=== PATIENT | male | born 1945 | race Caucasian/White ===

== ENCOUNTER 2023-01-03 20:34 | Emergency (ER) | payer MEDICARE, MEDICAID, SELFPAY ==
--- NOTE | ~2023-01-03 | CT_ITS ---
EXAMINATION: CT HEAD WITHOUT CONTRAST CLINICAL INFORMATION: Left-sided facial droop. Patient on liquids. COMPARISON: CT head from 02/08/2017. TECHNIQUE: Contiguous axial imaging was performed from the skull base to vertex without intravenous administration of contrast. This CT examination was performed using dose optimization techniques as appropriate, variously including the following: *Automated exposure control. *Adjustment of mA and/or kV according to patient size (this includes techniques or standardized protocols for targeted exams where dose is matched to indication/reason for exam; i.e. extremities or head). *Use of iterative reconstruction technique. DLP: 832 mGy-cm FINDINGS: There is no evidence of acute intracranial hemorrhage or edematous territorial infarction. Gomez-white matter differentiation is preserved. Scattered and partially confluent hypoattenuation in the periventricular and deep white matter are consistent with moderate microangiopathy. Proportional prominence of the ventricles and sulcal spaces without evidence of obstructive hydrocephalus. No abnormal mass effect or midline shift. No extra-axial fluid collections. No acute soft tissue or osseous abnormalities. Mild mucosal thickening of the paranasal sinuses. The mastoid air cells and middle ear cavities are clear. CT/CT head for stroke IMPRESSION: 1. No evidence of acute intracranial hemorrhage or edematous territorial infarction. 2. Moderate underlying microangiopathy and generalized cerebral volume loss.
--- NOTE | ~2023-01-03 | CT_ITS ---
EXAMINATION: CT ANGIOGRAM HEAD CT ANGIOGRAM NECK CLINICAL INFORMATION: Left-sided facial droop. Patient on Eliquis. COMPARISON: CT head from 01/03/2023. TECHNIQUE: Initial noncontrast electronic device repairer imaging of the head and neck was performed. Comparison is made with noncontrast head CT from earlier today. Test bolus sequences followed by intravenous administration 75 mL of Omnipaque 350. Helical imaging was performed in the axial plane from the aortic arch to the skull vertex. Delayed postcontrast imaging of the head was also performed. The data was processed at the polysomnographic technologist's workstation for generation of MIP sequences. Angled MIPs and volume rendered reformatted images were also generated at an offline 3D workstation. Stenoses are assessed in accordance with NASCET criteria unless otherwise indicated. This CT examination was performed using dose optimization techniques as appropriate, variously including the following: *Automated exposure control. *Adjustment of mA and/or kV according to patient size (this includes techniques or standardized protocols for targeted exams where dose is matched to indication/reason for exam; i.e. extremities or head). *Use of iterative reconstruction technique. DLP: 1659 mGy-cm FINDINGS: CT Head: There is no evidence of acute intracranial hemorrhage or edematous territorial infarction. Gomez-white matter differentiation is preserved. Scattered and partially confluent hypoattenuation in the periventricular and deep white matter are consistent with moderate microangiopathy. Proportional prominence of the ventricles and sulcal spaces without evidence of obstructive hydrocephalus. No abnormal mass effect or midline shift. No extra-axial fluid collections. No pathologic intra-axial enhancement or regional oligemia. No acute soft tissue or osseous abnormalities. Mild mucosal thickening of the paranasal sinuses. The mastoid air cells and middle ear cavities are clear. CT Neck: The thyroid gland and remaining cervical soft tissues are within normal limits. Straightening of the normal cervical lordosis. Advanced degenerative disc disease from C3-C7. Facet and uncovertebral joint arthropathy leads to osseous encroachment on the neural foramina from C3-C7. CT Upper Chest: The visualized lung apices and upper mediastinum are within normal limits. Neck CTA: Aortic Arch: Normal contour and caliber. Four vessel branching pattern with left vertebral artery arising directly from the arch between the left common carotid and left subclavian arteries. Great Vessel Origins: No significant stenosis of the branch origins. Right Common Carotid Artery: No focal stenosis or occlusion. Cervical Right Internal Carotid Artery: Normal opacification without focal stenosis or occlusion. Left Common Carotid Artery: No focal stenosis or occlusion. Cervical Left Internal Carotid Artery: Normal opacification without focal stenosis or occlusion. Cervical Right Vertebral Artery: Co-dominant. No focal stenosis or occlusion. Cervical Left Vertebral Artery: Co-dominant. No focal stenosis or occlusion. Brain CTA: Intracranial Internal Carotid Arteries: Calcific atherosclerotic disease of the intracranial internal carotid arteries without occlusion or flow-limiting stenosis. Right Anterior Cerebral Artery: Normal A1 segment. Normal opacification of the distal JOSEPH segments. Left Anterior Cerebral Artery: Normal A1 segment. Normal opacification of the distal JOSEPH segments. Anterior Communicating Artery: Normal. Right Middle Cerebral Artery: Normal M1 segment of the MCA without focal stenosis or occlusion. Normal arborization of the distal segments. Left Middle Cerebral Artery: Normal M1 segment of the MCA without focal stenosis or occlusion. Normal arborization of the distal segments. Right Vertebral Artery: Normal V4 segment. Normal opacification of the proximal segments of the posterior inferior cerebellar artery. Left Vertebral Artery: Normal V4 segment. Normal opacification of the proximal segments of the posterior inferior cerebellar artery. Basilar Artery: Normal without focal stenosis or occlusion. Normal appearance of the proximal superior cerebellar arteries. Right Posterior Cerebral Artery: The P1 segment is diminutive. origin of the PRESS TENDER SMOKE SIGNAL with robust opacification of the posterior communicating artery. Normal opacification of the distal PRESS TENDER SMOKE SIGNAL segments. Left Posterior Cerebral Artery: The P1 segment is diminutive. origin of the PRESS TENDER SMOKE SIGNAL with robust opacification of the posterior communicating artery. Normal opacification of the distal PRESS TENDER SMOKE SIGNAL segments. Normal opacification of the superior sagittal, straight, transverse, and sigmoid sinuses. CT/CT angio head neck stroke IMPRESSION: 1. No evidence of acute intracranial hemorrhage or edematous territorial infarction. Moderate underlying microangiopathy and generalized cerebral volume loss. 2. CTA of the head and neck without proximal occlusion or flow-limiting stenosis.
--- NOTE | 2023-01-03 20:38 | ECG_ITS ---
Test Reason : STROKE Blood Pressure : / mmHG Vent. Rate : 071 BPM Atrial Rate : 000 BPM P-R Int : 000 ms QRS Dur : 092 ms QT Int : 390 ms P-R-T Axes : 000 039 -11 degrees QTc Int : 423 ms Atrial fibrillation Nonspecific T wave abnormality Low voltage QRS Abnormal ECG When compared with ECG of 11-MAR-2017 21:27, Nonspecific T wave abnormality now evident in Inferior leads Nonspecific T wave abnormality now evident in Anterior leads Referred By: Wali Rosales Electronically Signed By:DONTE DE LA TORRE MD
[2023-01-03 20:41] LABS: Glucose, Whole Blood 116 mg/dL (60-115)
[2023-01-03 20:47] LABS: MANUAL DIFF FLAG NO
[2023-01-03 20:50] LABS: Basophils Percent Auto 0.4 % (0-2); Eosinophils Absolute Auto 0.2 X10*3/uL (0.0-0.4); Eosinophils Percent Auto 2.7 % (0-4); Hemoglobin 15.4 g/dl (14.0-18.0); Imm Gran Abs Auto 0.02 X10*3/uL (0.00-0.03); Imm Gran Pct Auto 0.2 % (0.0-0.4); Lymphocytes Absolute Auto 1.1 X10*3/uL (1.2-4.9); Lymphocytes Percent Auto 13.6 % (20-40); Mean Corpuscular HGB Conc 32.8 g/dl (31.0-36.0); Mean Corpuscular Hemoglobin 31.6 pg (27.0-33.0); Mean Corpuscular Volume 96.5 fL (80.0-98.0); Mean Platelet Volume 9.9 fL (9.4-12.4); Monocytes Absolute Auto 0.8 X10*3/uL (0.1-1.2); Monocytes Percent Auto 9.9 % (2-11); Neutrophils Absolute Auto 5.9 x10*3/uL (2.0-8.3); Neutrophils Percent Auto 73.2 % (45-73); Platelet Count 229 X10*3/uL (160-400); Red Blood Count 4.87 X10*6/uL (4.60-5.80); Red Cell Distribution Width 13.2 % (11.0-16.0); White Blood Count 8.1 X10*3/uL (4.8-10.8)
[2023-01-03 20:52] VITALS: BP 116/72; BP 124/76; PULSE 68; PULSE 72; RESP 16; O2SAT 98; BMI 36.1
[2023-01-03 20:57] VITALS: PULSE 72
[2023-01-03 21:00] LABS: INTERNATIONAL NORM RATIO 1.1 (0.9-1.1); Prothrombin Time 13.8 SEC (11.1-13.3)
[2023-01-03 21:01] VITALS: TEMP 36.4
--- NOTE | 2023-01-03 21:01 | PC.NURSE ---
2037 pt arrival via ems with stroke alert; Dr. Rosales to bedside. iv established by this RN; labs drawn. poc done by tech as documented. pt/inr not done per Dr. rosales request. [address] scan. pt return to room; changed into hospital gown. placed on heart monitor afib 60-72 bpm. ekg obtained. vss as documented. sats remain 96% on RA; respirations even and unlabored. 2100 pt axox4; speaking full clear sentences. strength equal ble and bue. +1 pitting edema noted ble. +pulses. pt able to follow commands. awaiting ct scan results. call meier within reach.
[2023-01-03 21:02] LABS: Partial Thromboplastin Time 44.2 SEC (26.0-36.4)
[2023-01-03 21:03] LABS: Stroke Lab Use COMPLETE
--- NOTE | 2023-01-03 21:04 | ED_ITS ---
HPI - Neuro Symptoms/Deficit General Chief Complaint: Stroke Stated Complaint: STROKE ALERT,L SIDE FACIAL DROOP, SLURRED SPEECH Time Seen by Provider: 01/03/23 20:38 Source: patient and EMS Mode of arrival: EMS Limitations: no limitations History of Present Illness HPI Narrative: History of atrial fibrillation on Eliquis [facility] facial droop. Patient was seen normal at his baseline and early afternoon at the time 18:00 when Eliquis was given noticed to have slurred speech and left-sided facial droop no recent fall or injury no other focal deficit noted by EMS no vomiting or change in sensorium Related Data Allergies Allergy/AdvReac Type Severity Reaction Status Date / Time No Known Allergies Allergy Unverified 11/23/19 16:20 [No Known Allergies*] Review of Systems 2 Review of Systems: Yes all other systems are reviewed and are negative [facility] Past Medical History Medical History (Updated 01/04/23 @ 00:15 by Wali Rosales MD) GERD (gastroesophageal reflux disease) CHF (congestive heart failure) Paroxysmal atrial fibrillation Schizoaffective disorder Dementia Hypertension Lymphedema CKD (chronic kidney disease) Social History Social History Advance Directives: Yes Advance Directives on File: Yes Advance Directives Date on File: 01/03/23 Physical Exam 2 Vital Signs: Vital Signs: Last Vital Signs Temp 97.6 F 01/03/23 21:01 Pulse 66 01/04/23 00:18 Resp 15 01/04/23 00:18 BP 109/67 01/04/23 00:18 Pulse Ox 96 01/04/23 00:18 O2 Del Method Room Air 01/04/23 00:18 BMI result Body Mass Index 36.1 Appearance: Alert. And awake No acute distress. Eyes: PERRLA, No Nystagmus ENT: Pharynx normal. Oral Mucosa moist left facial droop with slow speech Neck: Normal inspection. Neck supple. CVS: Irregularly irregular heart rate Pulses normal. Respiratory: No respiratory distress. Equal air entry bilateral, no wheezing/rales/rhonchi Abdomen: Soft and nontender. Bowel sounds are present, no mass palpable, no CVA tenderness Skin: Skin warm and dry. Normal skin color. Normal skin turgor. Extremities: No lower extremity edema. No calf tenderness Neuro: Oriented X 3. Good movements of all 4 extremities No sensory deficit.No cerebellar signs , Medications Administered Discontinued Medications Generic Name Dose Route Start Last Admin Trade Name Josefa PRN Reason Stop Dose Admin Iohexol 100 ml 01/03/23 22:11 01/03/23 22:11 Iohexol 350 Mg/Ml 100 Ml Infus..Btl IV 01/03/23 22:12 75 ml ONCE ONE Administration Medical Decision Making Medical Decision Making [facility] Narrative: Patient with facial droop on Eliquis for AFib CT scan negative for acute bleed or infarct, onset not very clear likely an afternoon. Not a candidate for tPA will do CTA head and neck to rule out LVO. 00:30 case discussed with [facility] at [facility] who [facility] patient according to her patient was little bit different than before under give him wandering he was not able to drink and was drooling has slight dysarthria. CT head and CTA head and neck is negative for acute patient already on Eliquis in the ER patient feeling much better taking p.o. fluids likely patient had TIA no change in medication at this time will discharge [facility] to [facility] advised to follow-up with neurologist continue his Eliquis Differential Diagnosis Differential Diagnoses: The differential diagnosis associated with the presentation includes CVA/ICH/TIA/Nolasco's palsy Lab Data [facility] Lab Attestation statement: I reviewed the patient's lab results. 01/03/23 20:41 01/03/23 20:41 Labs: Lab Results 01/03/23 01/03/23 Range/Units 20:37 20:41 WBC 8.1 (4.8-10.8) X10*3/uL RBC 4.87 (4.60-5.80) X10*6/uL Hgb 15.4 (14.0-18.0) g/dl Hct 47.0 (42.0-52.0) % MCV 96.5 (80.0-98.0) fL MCH 31.6 (27.0-33.0) pg MCHC 32.8 (31.0-36.0) g/dl RDW 13.2 (11.0-16.0) % Plt Count 229 (160-400) X10*3/uL MPV 9.9 (9.4-12.4) fL Immature Gran % (Auto) 0.2 (0.0-0.4) % Neut % (Auto) 73.2 H (45-73) % Lymph % (Auto) 13.6 L (20-40) % [place] % (Auto) 9.9 (2-11) % Eos % (Auto) 2.7 (0-4) % Baso % (Auto) 0.4 (0-2) % Lymph # (Auto) 1.1 L (1.2-4.9) X10*3/uL [place] # (Auto) 0.8 (0.1-1.2) X10*3/uL Eos # (Auto) 0.2 (0.0-0.4) X10*3/uL Baso # (Auto) 0.0 (0.0-0.2) X10*3/uL Abs Immat Gran (auto) 0.02 (0.00-0.03) X10*3/uL Absolute Neuts (auto) 5.9 (2.0-8.3) x10*3/uL Absolute Nucleated RBC 0.000 (0.0-0.012) X10*3/uL Nucleated RBC % (auto) 0.0 (0.0-0.2) /100WBC PT 13.8 H (11.1-13.3) SEC INR 1.1 (0.9-1.1) APTT 44.2 H (26.0-36.4) SEC Sodium 141 (135-145) mmol/L Potassium 3.6 (3.3-5.1) mmol/L Chloride 100 (96-108) mmol/L Carbon Dioxide 31 H (22-29) mmol/L Anion Gap 14 (12-20) BUN 20 H (9-16) mg/dL Creatinine 1.70 H (0.5-1.4) mg/dL Estim Creat Clear Calc 41.9 Estimated GFR 39 POC Glucose 116 H (60-115) mg/dL Random Glucose 117 H (60-115) mg/dL Calcium 9.1 (8.4-10.2) mg/dL Magnesium 2.4 (1.6-2.6) mg/dL Total Bilirubin 0.5 (0.0-1.0) mg/dL AST 16 (5-37) U/L ALT 19 (0-40) U/L Alkaline Phosphatase 87 (39-117) U/L Total Creatine Kinase 36 L (38-174) U/L Troponin I High Sens < 2.7 (<3.5-35.0) ng/L Total Protein 7.4 (6.5-8.0) g/dL Albumin 3.8 (3.5-5.0) g/dL Independent Interpretation I performed an independent interpretation of an: EKG Interpretation: Atrial fibrillation with heart rate 71 beats per minute normal axis no acute agitation no acute ischemia Radiology Impression Discussion of test interpretation with radiology: I have reviewed the radiologist's reading. Radiologist Impression: CT/CT angio head neck stroke IMPRESSION: 1. No evidence of acute intracranial hemorrhage or edematous territorial infarction. Moderate underlying microangiopathy and generalized cerebral volume loss. 2. CTA of the head and neck without proximal occlusion or flow-limiting stenosis. NIH Stroke Scale Internal: Initial- Upon Arrival Level of Consciousness: Alert Level of Consciousness Questions: Answers both questions correctly Level of Consciousness Commands: Performs both tasks correctly Best Gaze: Normal Visual: No visual loss Facial Palsy: Minor paralyis Motor Arm (Right): No drift Motor Arm (Left): No drift Motor Leg (Right): No drift Motor Leg (Left): No drift Limb Ataxia: Absent Sensory: Normal Best Language: No aphasia Dysarthia: Mild to moderate dysarthria Extinction and Inattention: No abnormality Score: 2 Discharge Plan Discharge Clinical Impression: Transient cerebral ischemia Patient Disposition: Xfer SNF Transfer Details: WORKUP FOR THE STROKE IS NEGATIVE INCLUDING CT SCAN OF THE HEAD CTA HEAD AND NECK NO BLOCKAGE NOTED. CONTINUE ELIQUIS AND FOLLOW WITH PCP
[2023-01-03 21:07] LABS: Alanine Aminotransferase 19 U/L (0-40); Albumin Level 3.8 g/dL (3.5-5.0); Alkaline Phosphatase 87 U/L (39-117); Anion Gap 14 (12-20); Aspartate Amino Transferase 16 U/L (5-37); Bilirubin Total 0.5 mg/dL (0.0-1.0); Blood Urea Nitrogen 20 mg/dL (9-16); Calcium 9.1 mg/dL (8.4-10.2); Carbon Dioxide 31 mmol/L (22-29); Chloride 100 mmol/L (96-108); Creatinine Clr Calc Pharmacy 41.9; Estimated Glomerular Filt Rate 39; Glucose Random 117 mg/dL (60-115); Magnesium 2.4 mg/dL (1.6-2.6); Potassium 3.6 mmol/L (3.3-5.1); Sodium 141 mmol/L (135-145); Total Protein 7.4 g/dL (6.5-8.0)
[2023-01-03 21:19] LABS: Troponin-I High Sensitivity < 2.7 ng/L (<3.5-35.0)
[2023-01-03] MEDS: iohexoL 350 MG/ML 100 ML INFUS..BTL IV (22:11)
--- NOTE | 2023-01-03 22:30 | PC.NURSE ---
reassessed pt at this time. no changes to previous assessment by this RN except slight improvement in facial droop; pt continues to speak full clear sentences. pt requests food.
[2023-01-03 22:33] VITALS: BP 100/67; PULSE 68; RESP 15; O2SAT 95
[2023-01-04 00:18] VITALS: BP 109/67; PULSE 66; RESP 15; O2SAT 96
--- NOTE | 2023-01-04 00:35 | PC.NURSE ---
Addendum entered by Paddy Garrett 01/04/23 00:38: pt able to take a bite, chew and swallow sandwich. Original Note: pt passed swallow eval; sandwich given per Dr. Rosales approval. report given to snf for pt d/c by Dr. Rosales.
[2023-01-04 02:23] VITALS: BP 100/59; PULSE 68; RESP 16; O2SAT 98
== END 2023-01-04 02:20 | disposition skilled nursing facility (03) ==
PROVIDERS: Emergency Provider Internal Medicine; PCP Emergency Medicine
DX: G45.9 Transient cerebral ischemic attack, unspecified (principal); I48.91 Unspecified atrial fibrillation; R29.702 NIHSS score 2; R29.810 Facial weakness; R47.81 Slurred speech; Z79.01 Long term (current) use of anticoagulants; Z79.899 Other long term (current) drug therapy
CPT/HCPCS: 36415; 70450; 70496; 70498; 80053; 82550; 82947; 83735; 84484; 85025; 85610; 85730; 93005; 99285; Q9967

== ENCOUNTER 2024-05-16 01:58 | Emergency (ER) | payer MEDICARE, MEDICAID, SELFPAY ==
--- NOTE | ~2024-05-16 | CT_ITS ---
CLINICAL HISTORY: fall, neck pain. CT cervical spine without contrast Comparison: None Findings: Normal vertebral body alignment. There is degenerative disc disease at the C3-4 through C6-7 levels. There is disc space narrowing and associated endplate reactive changes. Significant bilateral neural foraminal narrowing is noted each of these levels. No acute fractures or dislocations. Visualized intracranial contents are unremarkable. No cervical fluid collections or masses. Lung apices are clear. There is mild left-sided mastoiditis. 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 IMPRESSION: 1. No acute findings. 2. Degenerative disc disease as above. 3. Mild left-sided mastoiditis. This document has been electronically signed by: Navjot Alexander MD on 05/16/2024 05:56:15
--- NOTE | ~2024-05-16 | XR_ITS ---
CLINICAL HISTORY: fall, knee pain 2 view right knee Comparison: None Findings: Bones intact. No dislocations. There is soft tissue. There are small osteophytes. No joint effusion. No radiopaque foreign body. IMPRESSION: Soft tissue edema, no acute fractures Mild osteoarthrosis This document has been electronically signed by: Thierno Fortune MD on 05/16/2024 05:04:08
--- NOTE | ~2024-05-16 | CT_ITS ---
CLINICAL HISTORY: fall on Eliquis CT head without contrast Comparison: CT/SR - CT HEAD FOR STROKE - 01/03/23 20:42 EDT Findings: No intra-axial mass, midline shift, hydrocephalus, or acute hemorrhage. The visualized paranasal sinuses and mastoid air cells are normal. The orbits are unremarkable. No skull fracture. Involutional changes are noted. There is mild left-sided mastoiditis. IMPRESSION: 1. No acute intracranial findings. Involutional changes. 2. Mild left-sided mastoiditis. This document has been electronically signed by: Navjot Alexander MD on 05/16/2024 05:58:26
--- NOTE | 2024-05-16 02:05 | ECG_ITS ---
Test Reason : FALL Blood Pressure : */* mmHG Vent. Rate : 85 BPM Atrial Rate : * BPM P-R Int : * ms QRS Dur : 94 ms QT Int : 342 ms P-R-T Axes : * 17 -13 degrees QTcB Int : 406 ms Atrial fibrillation Low voltage QRS Abnormal ECG When compared with ECG of 03-Jan-2023 20:49, No significant change was found Referred By: Generic ED Physician Electronically Signed By: LETHA ACOSTA
[2024-05-16 02:15] VITALS: BP 122/68; BP 127/75; PULSE 100; RESP 13; TEMP 36.4; O2SAT 97; BMI 33.5
--- NOTE | 2024-05-16 02:17 | ED_ITS ---
HPI - Fall General Chief Complaint: Fall Stated Complaint: FALL/ HEADSTRIKE/SLURRED SPEECH Time Seen by Provider: 05/16/24 02:16 Source: patient and EMS Mode of arrival: EMS Limitations: no limitations History of Present Illness ED Provider: DR. Blackburn HPI Narrative: 78-year-old male brought in by ambulance from [facility] for unwitnessed fall, patient with history of AFib on Eliquis for anticoagulation. On arrival patient was arousable able to keep the history of the fall, slurred speech was not appreciated on my exam, was able to move 4 extremity with no drift or facial weakness. Patient sustained head injury, in C-collar complaining of neck pain, right knee pain. Related Data Allergies Allergy/AdvReac Type Severity Reaction Status Date / Time codeine Allergy Unknown Verified 05/16/24 02:22 lithium Allergy Unknown Verified 05/16/24 02:22 oxybutynin Allergy Unknown Verified 05/16/24 02:22 Review of Systems 2 Review of Systems: All other systems are reviewed and are negative Constitutional: Reports as per HPI and Reports no additional constitutional complaints Eyes: Reports as per HPI and Reports no additional eye complaints Reports system reviewed and no additional complaints, except as documented Cardiovascular: Reports as per HPI and Reports no additional cardiovascular complaints Respiratory: Reports as per HPI and Reports no additional respiratory complaints Gastrointestinal: Reports as per HPI and Reports no additional gastrointestinal complaints Genitourinary: Reports no additional female genitourinary complaints Musculoskeletal: Reports no additional musculoskeletal complaints Skin/Breast: Reports system reviewed and no additional complaints, except as docu Psychiatric: Reports no additional psychiatric complaints Endocrine: Reports no additional endocrine complaints Hematologic/Lymphatic: Reports no additional hematologic/lymphatic complaints Allergic/Immunologic: Reports no additional allergic/immunologic complaints Reports system reviewed and no additional complaints, except as documented and Reports Abnormal speech present [facility] Past Medical History Medical History GERD (gastroesophageal reflux disease) CHF (congestive heart failure) Paroxysmal atrial fibrillation Schizoaffective disorder Dementia Hypertension Lymphedema CKD (chronic kidney disease) Social History Social History Advance Directives: No Advance Directives Information Provided: Yes Advance Directives Date on File: 01/03/23 Do you have a plan to hurt others: No Plan Physical Exam 2 Vital Signs: Vital Signs: Last Vital Signs Temp 97.4 F 05/16/24 04:15 Pulse 89 05/16/24 05:39 Resp 16 05/16/24 05:39 BP 130/87 05/16/24 05:39 Pulse Ox 96 05/16/24 05:39 O2 Del Method Room Air 05/16/24 05:39 BMI result Body Mass Index 33.5 Vital signs have been reviewed and appear to be correct. Blood pressure elevated. Heart rate normal. Respiratory rate normal. Temperature normal. Oxygen saturation normal. Appearance: Alert. Oriented X3. No acute distress. Head: Normal external exam. Normocephalic. Atraumatic. No Fleming signs noted. No raccoon eyes noted Eyes: PERRLA. EOMI. Conjunctiva and sclera normal. Eyelids normal. ENT: TM's Normal. Pharynx normal. Uvula midline. Moist mucous membranes. No trismus noted. No drooling noted. No muffled voice noted. Neck: Normal inspection. Neck supple. FROM. No adenopathy. Thyroid Normal. No meningeal signs. No neck mass noted. CVS: Normal heart rate and rhythm. Heart sound normal. No murmurs noted. Pulses normal throughout. Respiratory: No respiratory distress. Painless inspiration. Breath sounds normal. No wheezes/rales/rhonchi noted. Chest nontender. No accessory muscle usage noted or decreased air movement noted. Abdomen: Soft and nontender. Bowel sounds normal in all 4 quadrants. No distention noted. No organomegaly noted. No visible injury noted. Back: No CVA tenderness. Full range of motion noted. Skin: Skin warm and dry. Normal skin color. Normal skin turgor. No rashes/lesions/lacerations noted. Extremities: right knee effusion with mild tenderness, no obvious deformity. Neuro: Mental status: Normal attention, orientation, memory, and affect. Cranial nerves: Pupils are equal, round and reactive to light, EOMI, visual snowden are fall, face is symmetric, facial sensations are normal. Motor examination normal muscle tone, strength to 4 extremities. DTR are +2, planter's are flexor. Sensory exam; normal coordination, no ataxia, gait stable. Cerebellar exam: Evpajh-hv-vmem and lobc-xs-jxvs is normal. Extrapyramidal system: No tremors, no rigidity with normal facial expressions. Pronator drift not present NIH Stroke Scale Internal: Initial- Upon Arrival Time: 02:19 Level of Consciousness: Alert Level of Consciousness Questions: Answers both questions correctly Level of Consciousness Commands: Performs both tasks correctly Best Gaze: Normal Visual: No visual loss Facial Palsy: Normal Motor Arm (Right): No drift Motor Arm (Left): No drift Motor Leg (Right): No drift Motor Leg (Left): No drift Limb Ataxia: Absent Sensory: Normal Best Language: No aphasia Dysarthia: Normal Extinction and Inattention: No abnormality Score: 0 Course Reevaluation(s) Reevaluation #1: Patient is AAO x3, able to ambulate in the emergency department at his baseline normal. Normal neuro exam with NIH score of 0, no clinical concern of stroke. CT reported left mastoiditis, patient has no tenderness or redness over his left mastoid process. Time: 06:01 Medical Decision Making Differential Diagnosis Differential Diagnoses: The differential diagnosis associated with the presentation includes ( Hemorrhagic stroke, ischemic stroke, cervical spine injury, right knee fracture, electrolyte derangement, severe anemia, ACS.) Admission/Observation Consideration of admission/observation: Escalation of care including admission/observation considered Lab Data MDM Lab Attestation statement: I reviewed the patient's lab results. 05/16/24 02:24 05/16/24 02:24 Labs: Lab Results 05/16/24 05/16/24 Range/Units 02:24 03:44 WBC 6.0 (4.8-10.8) X10*3/uL RBC 4.49 L (4.60-5.80) X10*6/uL Hgb 14.4 (14.0-18.0) g/dl Hct 43.4 (42.0-52.0) % MCV 96.7 (80.0-98.0) fL MCH 32.1 (27.0-33.0) pg MCHC 33.2 (31.0-36.0) g/dl RDW 14.2 (11.0-16.0) % Plt Count 198 (160-400) X10*3/uL MPV 9.9 (9.4-12.4) fL Immature Gran % (Auto) 0.2 (0.0-0.4) % Neut % (Auto) 66.9 (45-73) % Lymph % (Auto) 15.5 L (20-40) % [place] % (Auto) 13.1 H (2-11) % Eos % (Auto) 4.0 (0-4) % Baso % (Auto) 0.3 (0-2) % Lymph # (Auto) 0.9 L (1.2-4.9) X10*3/uL [place] # (Auto) 0.8 (0.1-1.2) X10*3/uL Eos # (Auto) 0.2 (0.0-0.4) X10*3/uL Baso # (Auto) 0.0 (0.0-0.2) X10*3/uL Abs Immat Gran (auto) 0.01 (0.00-0.03) X10*3/uL Absolute Neuts (auto) 4.0 (2.0-8.3) x10*3/uL Absolute Nucleated RBC 0.000 (0.0-0.012) X10*3/uL Nucleated RBC % (auto) 0.0 (0.0-0.2) /100WBC PT 14.5 H (10.9-12.4) SEC INR 1.2 H (0.9-1.1) Sodium 144 (135-145) mmol/L Potassium 4.2 (3.3-5.1) mmol/L Chloride 109 H (96-108) mmol/L Carbon Dioxide 28 (22-29) mmol/L Anion Gap 11 L (12-20) BUN 24 H (9-16) mg/dL Creatinine 1.47 H (0.5-1.4) mg/dL Estim Creat Clear Calc 52.0 Estimated GFR 46 Random Glucose 87 (60-115) mg/dL Calcium 8.7 (8.4-10.2) mg/dL Total Bilirubin 0.4 (0.0-1.0) mg/dL AST 18 (5-37) U/L ALT 15 (0-40) U/L Alkaline Phosphatase 79 (39-117) U/L Total Protein 6.6 (6.5-8.0) g/dL Albumin 3.4 L (3.5-5.0) g/dL Urine Color Yellow Urine Appearance Clear Urine pH 6.0 (5.0-9.0) Ur Specific [place] 1.015 (1.005-1.025) Urine Protein Negative (Neg-Trace) mg/dL Urine Glucose (UA) Negative (Negative) mg/dL Urine Ketones Negative (Negative) mg/dL Urine Blood Negative (Negative) Urine Nitrite Negative (Negative) Ur Leukocyte Esterase Trace H (Negative) Urine RBC 0-2 (0-2) /HPF Urine WBC 0-5 (0-5) /HPF Ur Squamous Epith Cells 0-2 (0-2) /HPF Urine Bacteria None Seen (None Seen) Hyaline Casts 0-2 (0-2) /LPF Independent Interpretation I performed an independent interpretation of an: EKG ( Atrial fibrillation at 85 beats per minutes, no ST-T changes.) Radiology Impression Discussion of test interpretation with radiology: I have reviewed the radiologist's reading. Discharge Plan Discharge Clinical Impression: Accident due to mechanical fall without injury, Closed head injury Patient Disposition: Xfer [facility] Instructions: Fall Prevention (ED) Print Language: Malaysian
[2024-05-16 02:28] LABS: MANUAL DIFF FLAG NO
[2024-05-16 02:30] LABS: Basophils Percent Auto 0.3 % (0-2); Eosinophils Absolute Auto 0.2 X10*3/uL (0.0-0.4); Hematocrit 43.4 % (42.0-52.0); Hemoglobin 14.4 g/dl (14.0-18.0); Imm Gran Abs Auto 0.01 X10*3/uL (0.00-0.03); Imm Gran Pct Auto 0.2 % (0.0-0.4); Lymphocytes Absolute Auto 0.9 X10*3/uL (1.2-4.9); Lymphocytes Percent Auto 15.5 % (20-40); Mean Corpuscular HGB Conc 33.2 g/dl (31.0-36.0); Mean Corpuscular Hemoglobin 32.1 pg (27.0-33.0); Mean Corpuscular Volume 96.7 fL (80.0-98.0); Mean Platelet Volume 9.9 fL (9.4-12.4); Monocytes Absolute Auto 0.8 X10*3/uL (0.1-1.2); Monocytes Percent Auto 13.1 % (2-11); Neutrophils Percent Auto 66.9 % (45-73); Platelet Count 198 X10*3/uL (160-400); Red Blood Count 4.49 X10*6/uL (4.60-5.80); Red Cell Distribution Width 14.2 % (11.0-16.0)
[2024-05-16 02:40] LABS: INTERNATIONAL NORM RATIO 1.2 (0.9-1.1); Prothrombin Time 14.5 SEC (10.9-12.4)
[2024-05-16 02:49] LABS: Alanine Aminotransferase 15 U/L (0-40); Albumin Level 3.4 g/dL (3.5-5.0); Anion Gap 11 (12-20); Aspartate Amino Transferase 18 U/L (5-37); Bilirubin Total 0.4 mg/dL (0.0-1.0); Blood Urea Nitrogen 24 mg/dL (9-16); Calcium 8.7 mg/dL (8.4-10.2); Carbon Dioxide 28 mmol/L (22-29); Chloride 109 mmol/L (96-108); Estimated Glomerular Filt Rate 46; Glucose Random 87 mg/dL (60-115); Potassium 4.2 mmol/L (3.3-5.1); Sodium 144 mmol/L (135-145); Total Protein 6.6 g/dL (6.5-8.0)
[2024-05-16 03:16] LABS: Alkaline Phosphatase 79 U/L (39-117)
[2024-05-16 03:52] LABS: Appearance Urine Clear; Color Urine Yellow; Glucose Urine UA Negative (Negative); Leukocyte Esterase Urine Trace (Negative); Nitrite Urine Negative (Negative); Specific Gravity - Urine 1.015 (1.005-1.025); UMIC TRIGGER UACC YES; Urine Blood Negative (Negative); Urine Ketones Negative (Negative); Urine Protein Negative (Neg-Trace)
[2024-05-16 03:57] LABS: Bacteria Urine None Seen (None Seen); Hyaline Casts Urine 0-2 /LPF (0-2); RBC Urine 0-2 /HPF (0-2); Squamous Epithelial Cell Urine 0-2 /HPF (0-2); WBC Urine 0-5 /HPF (0-5)
--- NOTE | 2024-05-16 04:05 | PC.NURSE ---
ambulation trial-pt walked around room with walker.PT able to ambulate with walker with no issues.
[2024-05-16 04:15] VITALS: BP 134/95; PULSE 84; RESP 15; TEMP 36.3; O2SAT 96
[2024-05-16 05:39] VITALS: BP 130/87; PULSE 89; RESP 16; O2SAT 96
[2024-05-16 06:13] VITALS: BP 137/82; PULSE 83; RESP 16; O2SAT 98
[2024-05-16 06:16] VITALS: BP 137/82; PULSE 83; RESP 16; TEMP 36.3; O2SAT 98
== END 2024-05-16 07:13 | disposition skilled nursing facility (03) ==
LOC: HO.ED 05:40
PROVIDERS: Emergency Provider Emergency Medicine; PCP Emergency Medicine
DX: S09.90XA Unspecified injury of head, initial encounter (principal); I48.91 Unspecified atrial fibrillation; M54.2 Cervicalgia; R51.9 Headache, unspecified; M25.561 Pain in right knee; R47.81 Slurred speech; X58.XXXA Exposure to other specified factors, initial encounter; Y93.9 Activity, unspecified; Y92.099 Unspecified place in other non-institutional residence as the place of occurrence of the external cause; Y99.8 Other external cause status; Z79.01 Long term (current) use of anticoagulants; Z79.899 Other long term (current) drug therapy
CPT/HCPCS: 36415; 70450; 72125; 73560; 80053; 81001; 85025; 85610; 93005; 99284

== ENCOUNTER → 2024-05-16 02:05 | Outpatient (BNV) | payer MEDICARE, MEDICAID, SELFPAY | PROVIDERS: Emergency Provider Emergency Medicine; PCP Emergency Medicine; Visit Provider Internal Medicine | DX: I48.91 Unspecified atrial fibrillation (principal); R94.31 Abnormal electrocardiogram [ECG] [EKG] | CPT/HCPCS: 93010 ==

== ENCOUNTER → 2024-05-16 02:16 | Outpatient (BNV) | payer MEDICARE, MEDICAID, SELFPAY | PROVIDERS: Emergency Provider Emergency Medicine; PCP Emergency Medicine; Visit Provider Radiology Diagnostic Radiology | DX: M54.2 Cervicalgia (principal); M25.561 Pain in right knee; S09.90XA Unspecified injury of head, initial encounter; W01.198A Fall on same level from slipping, tripping and stumbling with subsequent striking against other object, initial encounter | CPT/HCPCS: 73560 ==